=== PATIENT | male | born 1965 | race African-American/Black ===

== ENCOUNTER 2021-04-17 14:24 | Outpatient (CLI) | payer BC ==
[2021-04-18 00:17] LABS: SARS-CoV-2 PCR by NAA Not Detected (NotDetected)
== END 2021-04-17 14:25 | disposition home or self-care (01) ==
LOC: CSHLAB 14:24
PROVIDERS: ATTEND Surgery
DX: Z20.822 Contact with and (suspected) exposure to COVID-19 (principal)
CPT/HCPCS: U0003; U0005